=== PATIENT | female | born 1995 | race Caucasian/White ===

== ENCOUNTER 2017-03-21 20:44 | Emergency (ER) | payer BC, OTHER ==
[~2017-03-21] VITALS: Ht 152.4 cm; Wt 63.9 kg
[2017-03-21 20:49] VITALS: TEMP 36.9; Ht 152.4 cm; Wt 63.9 kg
[2017-03-21] MEDS ORDERED: SODIUM CHLORIDE 0.9% 1000ML 1,000 ML IV STA ×2 (21:10→22:47)
--- NOTE | 2017-03-21 21:19 | DIAGNOSTIC IMAGING REPORT ---
CHEST ONE VIEW PORTABLE CLINICAL HISTORY: 22 years-old Female presenting with Chest Pain. TECHNIQUE: Portable upright AP view of the chest was obtained. COMPARISON: None. FINDINGS: An external device projects over the left apex degrading evaluation in this region. Cardiomediastinal silhouette normal. Lungs and pleural spaces clear. Osseous structures normal. Upper abdomen normal. IMPRESSION: 1. No acute cardiopulmonary disease. Electronically signed by: Sudhakar Alves M.D. 03/21/2017 9:17 PM Dictated Date/Time: 03/21/2017 9:16 PM
[2017-03-21 21:21] LABS: BASO % 0.7 %; BASO ABS # 0.06 K/uL (0-0.2); EOS % 2.6 %; EOS ABS # 0.22 K/uL (0-0.5); HEMATOCRIT 41.7 % (37-47); HEMOGLOBIN 14.5 g/dL (12.0-16.0); IG# 0.02 K/uL (0.00-0.02); LYMPH % 44.5 %; LYMPH ABS # 3.77 K/uL (1.2-3.4); MEAN CELL VOLUME 88.5 fL (80-100); MEAN CORPUSCULAR HEMOGLOBIN 30.8 pg (25-34); MEAN CORPUSCULAR HGB CONC 34.8 g/dl (32-36); MEAN PLATELET VOLUME 9.7 fL (7.4-10.4); MONO % 4.6 %; MONO ABS # 0.39 K/uL (0.11-0.59); NEUT % 47.4 %; NEUT ABS # 4.02 K/uL (1.4-6.5); PLATELET COUNT 329 K/uL (130-400); RED CELL DISTRIBUTION WIDTH CV 12.5 % (11.5-14.5); RED CELL DISTRIBUTION WIDTH SD 40.1 fL (36.4-46.3); WHITE BLOOD COUNT 8.48 K/uL (4.8-10.8)
[2017-03-21 21:25] LABS: CALCIUM 9.3 mg/dl (8.5-10.1); POTASSIUM 3.1 mmol/L (3.5-5.1); SODIUM 138 mmol/L (136-145)
[2017-03-21 21:28] LABS: BLOOD UREA NITROGEN 10 mg/dl (7-18); CARBON DIOXIDE 26 mmol/L (21-32); CREATININE 0.74 mg/dl (0.60-1.20); GLUCOSE 117 mg/dl (70-99)
[2017-03-21 21:41] LABS: CKMB < 0.5 ng/ml (0.5-3.6)
[2017-03-21] MEDS ORDERED: OPTIRAY 320 IV PRN (22:00)
[2017-03-21] MEDS ORDERED: BCPILLS PO (22:10)
[2017-03-21] MEDS ORDERED: IBUP-103 PO (22:10)
--- NOTE | 2017-03-21 22:22 | DIAGNOSTIC IMAGING REPORT ---
(CHEST FOR PE) ANGIO WITH CLINICAL HISTORY: 22 years-old Female presenting with ^+dd and cp w/ sob. TECHNIQUE: Multidetector CT angiography of the chest was performed after administration of intravenous contrast. 3-D volumetric and/or maximum intensity projection (MIP) images were subsequently reconstructed for review. IV contrast: 77 mL of Optiray 320. A dose lowering technique was used consistent with the principles of ALARA (as low as reasonably achievable). COMPARISON: Chest x-ray performed earlier the same day. CT DOSE (mGy.cm): The estimated cumulative dose is 209.02 mGy.cm. FINDINGS: Strip Feeder topogram: Unremarkable. Pulmonary vasculature: The study is suboptimal for the assessment of the pulmonary vascular tree secondary to timing of the contrast bolus. No filling defect within the pulmonary arteries to suggest embolus. Main pulmonary artery is not enlarged. No flattening of the interventricular septum. No intracardiac filling defect. No reflux of contrast into the hepatic veins. Remaining chest: On soft tissue windows, normal thyroid and thoracic inlet. No axillary, supraclavicular, hilar, or mediastinal lymphadenopathy. Normal aorta. Normal heart size. No pericardial or pleural effusion. Upper abdomen normal. On lung windows, no focal infiltrate or nodule. The most inferior portion of the lung bases are excluded from the [id number] limiting evaluation. Airways patent. On bone windows, normal osseous structures. IMPRESSION: 1. No evidence of pulmonary embolus. No acute intrathoracic pathology. Electronically signed by: Sudhakar Alves M.D. 03/21/2017 10:21 PM Dictated Date/Time: 03/21/2017 10:16 PM
--- NOTE | 2017-03-21 23:49 | EMERGENCY ROOM VISIT NOTE ---
History Report prepared by Darryl: Nedra Phillip Under the Supervision of: Petra GuillenO. First contact with patient: 20:57 Chief Complaint: CARDIAC ASSESSMENT Stated Complaint: RACING HEART History of Present Illness The patient is a 22 year old female who presents to the Emergency Room with complaints of a resolved tachycardic episode that occurred 30 minutes ago. The patient states that she has been similar symptoms for 2 weeks, noting they have not been as severe. She notes she was lightheaded. The patient states her symptoms are similar to when she has panic attacks. She states she has a heart monitor in place, noting she has a history of palpitations. The patient notes she takes control. Pt denies headache, change in vision, fevers, chest pain, shortness of breath, nausea, vomiting, diarrhea, pain with urination, and melena. Patient denies swelling of calves, recent trips, history of immobilization or recent surgery, prior history of DVT, hemoptysis, history of malignancy, history of smoking. Patient denies diabetes, hypertension, hyperlipidemia, CAD, history of sudden at a young age, and smoking. Source of History: patient Onset: 30 minutes ago Position: other (global) Quality: other (tachycardic episode) Timing: other (resolved) Review of Systems See HPI for pertinent positives & negatives. A total of 10 systems reviewed and were otherwise negative. Family History Patient reports no known family medical history. Social History Smoking Status: Never Smoker Smokeless Tobacco Use: No Alcohol Use: none Drug Use: none Marital Status: single Occupation Status: employed Current/Historical Medications Scheduled Control Pills ( Control Pills), 1 TAB PO DAILY Ibuprofen Tab (Advil), 200 MG PO PRN Allergies Coded Allergies: Amoxicillin (Verified Allergy, Intermediate, hives, 03/21/17) Physical Exam Vital Signs Date Time Temp Pulse Resp B/P (MAP) Pulse Ox O2 Delivery O2 Flow Rate FiO2 03/21/17 22:14 108 20 135/91 100 Room Air 03/21/17 21:45 96 20 136/87 100 Room Air 03/21/17 21:23 129 03/21/17 21:06 96 03/21/17 20:59 100 Room Air 03/21/17 20:49 36.9 105 20 144/89 99 Room Air Physical Exam GENERAL: Sitting up in bed, anxious, alert, well appearing, well nourished, non- toxic EYE EXAM: normal conjunctiva. OROPHARYNX: no exudate, no erythema, lips, buccal mucosa, and tongue normal and mucous membranes are moist NECK: supple, no nuchal rigidity, no adenopathy, non-tender LUNGS: Clear to auscultation. Normal chest wall mechanics HEART: no murmurs, S1 normal and S2 normal CHEST: Monitor located in upper left chest wall. ABDOMEN: abdomen soft, non-tender, normo-active bowel sounds, no masses, no rebound or guarding. BACK: Back is symmetrical on inspection and there is no deformity, no midline tenderness, no CVA tenderness. SKIN: no rashes and no bruising UPPER EXTREMITIES: upper extremities are grossly normal. LOWER EXTREMITIES: Calves equal bilateral. No pitting edema. NEURO EXAM: Normal sensorium, cranial nerves II-XII grossly intact, normal speech, no gross weakness of arms, no gross weakness of legs. Medical Decision & Procedures ER Provider Diagnostic Interpretation: Radiology results as stated below per my review and the radiologist's interpretation: (CHEST FOR PE) ANGIO WITH CLINICAL HISTORY: 22 years-old Female presenting with ^+dd and cp w/ sob. TECHNIQUE: Multidetector CT angiography of the chest was performed after administration of intravenous contrast. 3-D volumetric and/or maximum intensity projection (MIP) images were subsequently reconstructed for review. IV contrast: 77 mL of Optiray 320. A dose lowering technique was used consistent with the principles of ALARA (as low as reasonably achievable). COMPARISON: Chest x-ray performed earlier the same day. CT DOSE (mGy.cm): The estimated cumulative dose is 209.02 mGy.cm. FINDINGS: Vice [employer] topogram: Unremarkable. Pulmonary vasculature: The study is suboptimal for the assessment of the pulmonary vascular tree secondary to timing of the contrast bolus. No filling defect within the pulmonary arteries to suggest embolus. Main pulmonary artery is not enlarged. No flattening of the interventricular septum. No intracardiac filling defect. No reflux of contrast into the hepatic veins. Remaining chest: On soft tissue windows, normal thyroid and thoracic inlet. No axillary, supraclavicular, hilar, or mediastinal lymphadenopathy. Normal aorta. Normal heart size. No pericardial or pleural effusion. Upper abdomen normal. On lung windows, no focal infiltrate or nodule. The most inferior portion of the lung bases are excluded from the [id number] limiting evaluation. Airways patent. On bone windows, normal osseous structures. IMPRESSION: 1. No evidence of pulmonary embolus. No acute intrathoracic pathology. Electronically signed by: Sudhakar Alves M.D. 03/21/2017 10:21 PM Dictated Date/Time: 03/21/2017 10:16 PM CHEST ONE VIEW PORTABLE CLINICAL HISTORY: 22 years-old Female presenting with Chest Pain. TECHNIQUE: Portable upright AP view of the chest was obtained. COMPARISON: None. FINDINGS: An external device projects over the left apex degrading evaluation in this region. Cardiomediastinal silhouette normal. Lungs and pleural spaces clear. Osseous structures normal. Upper abdomen normal. IMPRESSION: 1. No acute cardiopulmonary disease. Electronically signed by: Sudhakar Alves M.D. 03/21/2017 9:17 PM Dictated Date/Time: 03/21/2017 9:16 PM Laboratory Results 03/21/17 21:00 Red Blood Count 4.71, Mean Corpuscular Volume 88.5, Mean Corpuscular Hemoglobin 30.8, Mean Corpuscular Hemoglobin Concent 34.8, Mean Platelet Volume 9.7, Neutrophils (%) (Auto) 47.4, Lymphocytes (%) (Auto) 44.5, Monocytes (%) (Auto) 4.6, Eosinophils (%) (Auto) 2.6, Basophils (%) (Auto) 0.7, Neutrophils # (Auto) 4.02, Lymphocytes # (Auto) 3.77, Monocytes # (Auto) 0.39, Eosinophils # (Auto) 0.22, Basophils # (Auto) 0.06 03/21/17 21:00 Test 03/21/17 21:00 03/21/17 22:59 White Blood Count 8.48 K/uL (4.8-10.8) Red Blood Count 4.71 M/uL (4.2-5.4) Hemoglobin 14.5 g/dL (12.0-16.0) Hematocrit 41.7 % (37-47) Mean Corpuscular Volume 88.5 fL (80-100) Mean Corpuscular Hemoglobin 30.8 pg (25-34) Mean Corpuscular Hemoglobin Concent 34.8 g/dl (32-36) Platelet Count 329 K/uL (130-400) Mean Platelet Volume 9.7 fL (7.4-10.4) Neutrophils (%) (Auto) 47.4 % Lymphocytes (%) (Auto) 44.5 % Monocytes (%) (Auto) 4.6 % Eosinophils (%) (Auto) 2.6 % Basophils (%) (Auto) 0.7 % Neutrophils # (Auto) 4.02 K/uL (1.4-6.5) Lymphocytes # (Auto) 3.77 K/uL (1.2-3.4) Monocytes # (Auto) 0.39 K/uL (0.11-0.59) Eosinophils # (Auto) 0.22 K/uL (0-0.5) Basophils # (Auto) 0.06 K/uL (0-0.2) RDW Standard Deviation 40.1 fL (36.4-46.3) RDW Coefficient of Variation 12.5 % (11.5-14.5) Immature Granulocyte % (Auto) 0.2 % Immature Granulocyte # (Auto) 0.02 K/uL (0.00-0.02) D-Dimer 1320 ug/L FEU (0-500) Anion Gap 8.0 mmol/L (3-11) Est Creatinine Clear Calc Drug Dose 99.5 ml/min Estimated GFR () 133.3 Estimated GFR (Non- 115.0 BUN/Creatinine Ratio 13.9 (10-20) Calcium Level 9.3 mg/dl (8.5-10.1) Total Creatine Kinase 79 U/L (26-192) Creatine Kinase MB < 0.5 ng/ml (0.5-3.6) Creatine Kinase MB Ratio (0-3.0) Thyroid Stimulating Hormone (TSH) 5.950 uIu/ml (0.300-4.500) Troponin I < 0.015 ng/ml (0-0.045) Laboratory results per my review. Medications Administered Medications (Trade) Dose Ordered Sig/Tonya Route Start Time Stop Time Status Last Admin Dose Admin Sodium Chloride 1,000 ml @ 999 mls/hr Q1H1M STAT IV 03/21/17 21:10 03/21/17 22:10 DC 03/21/17 21:18 999 MLS/HR Sodium Chloride 1,000 ml @ 999 mls/hr Q1H1M STAT IV 03/21/17 22:47 03/21/17 23:47 DC 03/21/17 23:32 999 MLS/HR ECG Indication: tachycardia Rate (beats per minute): 86 Rhythm: sinus rhythm Findings: other (normal axis, scoping of ST segments, lateral and inferior leads, normal intervals) ED Course ED COURSE: Vital signs were reviewed and showed tachycardic rate. The patients medical record was reviewed The above diagnostic studies were performed and reviewed. ED treatments and interventions as stated above. 2101: The patient was evaluated in room B3. A complete history and physical examination was performed. 0: Ordered Sodium Chloride 1000ml @ 999mls/hr IV. 2199: Ordered Ioversol 111ml IV. 2246: I reevaluated the patient, who was feeling significantly better. I updated her on test findings. Ordered Sodium chloride 1000ml @ 999mls/hr. 2304: I reevaluated the patient and gave her water. 2332: Upon reevaluation, the patient is feeling better. I discussed the findings and the treatment plan with the patient. She verbalizes agreement and understanding. The patient was discharged home. Medical Decision Differential diagnosis: Etiologies such as cardiac ischemia, aortic dissection, pulmonary embolism, pneumonia, pneumothorax, musculoskeletal, infections, pericarditis, myocarditis , esophageal rupture, gastrointestinal, as well as others were entertained. The patient is a 22 year old female who presents to the ED with complaints of tachycardic episode. This started about 20 minutes prior to arrival. Patient has had this off and on for the past 2 weeks. She currently has a heart monitor in place. She notes that this does not transmit. Patient denies any chest pain or shortness of breath about the self so. She notes this does feel similar to her anxiety. No cardiac risk factors. CBC was unremarkable. Potassium was slightly low at 3.1 which I favor is secondary to her tachypnea. Troponin was negative 2. EKG was nondiagnostic with did show scooping of the ST waves in the lateral leads which I favor secondary to control. I do not believe this was ischemic. TSH is slightly elevated at 5.9. Patient was given 2 L of fluids. Should complete resolution of her symptoms. She was monitored closely. CT PE was performed as d-dimer was positive. This was negative. Patient was updated bedside. She is discharged follow-up with PCP as an outpatient. Discussed with Pt concerning signs and symptoms to watch out for. Pt was instructed to follow up with their PCP and discussed with the patient their option to return to the ED at anytime for persistent or worsening symptoms. The appropriate anticipatory guidance and out-patient management, including indications for return to the emergency department, were explained at length to the patient and understood. Medication Reconcilliation Current Medication List: was personally reviewed by me Blood Pressure Screening Patient's blood pressure: Normal blood pressure Impression Primary Impression: Palpitations Scribe Attestation The scribe's documentation has been prepared under my direction and personally reviewed by me in its entirety. I confirm that the note above accurately reflects all work, treatment, procedures, and medical decision making performed by me. Departure Information Dispostion Home / Self-Care Forms IMPORTANT VISIT INFORMATION Patient Instructions My [facility] Additional Instructions Please follow up with your primary care doctor with in the next 24 hours. Any worsening of your symptoms, please return to the ED immediately. This includes any fevers greater than 100.4, worsening pain, chest pain, shortness breath, persistent nausea, vomiting, unable to eat or drink, or any other concerning signs or symptoms from your standpoint. Please try to refrain from drinking any caffeine or stimulants. Please have a TSH followed up on by your primary care doctor. This is a thyroid test for which she was slightly elevated at 5.5.
[2017-03-22 00:34] VITALS: BP 128/82; PULSE 88; O2SAT 100
== END 2017-03-22 00:35 | disposition home or self-care (01) ==
LOC: C.EDB 20:46
DX: R00.2 Palpitations (principal)